=== PATIENT | female | born 1985 | race Caucasian/White ===

== ENCOUNTER → 2016-12-05 | Outpatient (CLI) | payer SELFPAY ==
[~2016-12-05] MED LIST: COLACE-DPS100 MG PO; DERMOPLAST SPRA56 GM TP; LAN-O-SOOTHE7 GM TP; MOTRIN-DPS800 MG PO; NIPPLECREAM TP; TUCKS1 EACH TP; TYLENOL EXTRA500 M1 PO
== END | disposition home or self-care (01) ==
LOC: RAD.S 10:09
DX: Z36 Encounter for antenatal screening of mother (principal); Z3A.23 23 weeks gestation of pregnancy